=== PATIENT | female | born 1940 | race Caucasian/White ===

== ENCOUNTER 2025-01-26 09:00 | Outpatient (REF) | payer MEDICARE, SELFPAY ==
--- NOTE | ~2025-01-26 | XR_ITS ---
EXAMINATION: XR KNEE 3 VIEWS LEFT HISTORY: M25.562 - Pain in left knee COMPARISON: There are no prior studies available for comparison. FINDINGS: Three views of the left knee are submitted. There is ill-defined increased sclerosis involving the medial aspect of the proximal tibial metaphysis. This could represent a healing stress fracture. There is no dislocation. There is mild narrowing of the medial compartment. There are vascular calcifications. There is no joint effusion. XR/XR knee LT 3V IMPRESSION: 1. Ill-defined sclerosis involving the medial aspect of the proximal tibial metaphysis which could represent a healing stress fracture. If further imaging is desired, MRI could be performed. 2. Mild narrowing of the medial compartment. Electronically signed by: Raulito Alicea MD 01/27/2025 09:43 AM EDT
--- OUTSIDE RECORDS SUMMARY | 2025-01-27 09:13 | XMS_ITS | Clinical Summary ---
Author Organization [facility] Address [address] [place], [place] [id number] Care Team Providers Care Senior Product Analyst Name Role Phone Félix Alarcon MD Primary Care Provider [phone]- [phone] Allergies Active Allergy Reactions Criticality Noted Date [...] age to complete this topic Care Teams Senior Product Analyst Relationship Specialty Start Date End Date Félix Alarcon MD [address] [place] [address] PCP - General Internal Medicine 06/10/17
--- OUTSIDE RECORDS SUMMARY | 2025-01-27 09:13 | XMS_ITS | Clinical Summary ---
Author Organization [address] [place] [address] Address [address] [place] [address] Phone Care Team Providers Care Classification Officer Name Role Phone Mar Lund Primary Care Provider [phone] Allergies Active Allergy Reactions Criticality Noted Date [...] Description 03/24/2025 9:20 AM EDT Office Visit [facility] [address] [phone] Cr Romero MD [address] [address] Health Maintenance Due Date Last Done Comments [...] Procedure Name Priority Date/Time Associated Diagnosis Comments [facility] DEXA AXIAL SKELETON Routine 09/07/2018 11:24 AM EST Asymptomatic menopausal state from Last 3 Months or Most Recently Relevant to Health Maintenance Results * [facility] DEXA AXIAL SKELETON (09/07/2018 11:24 AM EST) Anatomical Region Laterality Modality Mammography 09/07/2018 9:11 AM EST Narrative 09/07/2018 11:24 AM EST [facility] Diagnostic Imaging Department [address] [place] [id number] Patient: ??AIDEE NOLEN ?/Age/Sex: 1940 - 78 - F Unit#: ??[id number] ? Location/Status: ??SPDIMAM/REG CLI ? Mnemonic/Ordering Site: [...] probability of hip fracture of 2.7%. Code 32593 Dictating Physician: ??THA KENT MD Electronically Signed by: ??THA KENT MD Dic Date/Time: ??09/07/18 1123 Sign date/Time: ??09/07/18 1124 Procedure Note Tha Kent MD - 10/15/2022 [facility] Diagnostic Imaging Department [address] [place] [id number] Patient: AIDEE NOLEN Elaine /Age/Sex: 1940 - 78 - F Unit#: [id number] Location/Status: SPDIMAM/REG CLI Mnemonic/Ordering Site: MAMDEXAAX/SPMAM Ordering [...] probability of hip fracture of 2.7%. 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
== END 2025-01-26 09:01 | disposition home or self-care (01) ==
LOC: HO.HOSX 09:00
PROVIDERS: Visit Provider Orthopaedic Surgery
DX: M25.562 Pain in left knee (principal)
CPT/HCPCS: 73562; 99202

== ENCOUNTER 2025-01-26 13:21 | Outpatient (AMB) | payer MEDICARE, SELFPAY ==
--- NOTE | 2025-01-26 13:32 | MHC.OFFVIS ---
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 She describes her pain as sharp in nature. Her pain has gotten worse over the last few years in spite of continued non operative treatments. She has had cortisone injections given into her left knee by another provider in the past. She got minimal relief from those injections. She has also had Euflexxa viscosupplementation injections which gave her good relief. She has failed the last 3 months of conservative treatment which has included a home exercise program, physical therapy exercises, Tylenol, anti-inflammatory medicines and diclofenac topical gel. At this point her left knee pain is interfering with her activities of daily living and her ability to sleep well through the night. The patient wishes to hold off on left total knee replacement surgery for as long as possible. Allergies mold Allergy (Verified 01/26/25 13:38) trouble breathing Penicillins Allergy (Verified 01/26/25 13:38) Swelling Medication List - Last Reconciled 01/27/25 by Robby Vo MD amlodipine 2.5 mg PO DAILY aspirin (Adult Low Dose Aspirin) 81 mg PO DAILY diclofenac sodium 1% topical lisinopril 20 mg PO DAILY omeprazole 20 mg PO DAILY simvastatin 20 mg PO BEDTIME Physical Exam Const Other: Well-nourished well-developed very friendly female awake alert and oriented x3 in no acute distress Extrem Other: Bilateral lower extremity examination shows good capillary refill, no skin lesions noted, normal sensation light touch Left knee examination shows a minimal effusion, palpable crepitus with range of motion, pain with range of motion, no instability Results Reviewed Results Reviewed: X-rays of the patient's left knee show moderate diffuse joint space narrowing, subchondral sclerosis, no acute bony abnormalities Assessment & Plan Assessment & Plan (1) Osteoarthritis of left knee: Code(s): M17.12 - Unilateral primary osteoarthritis, left knee Category: Medical Plan Ms. Nolen presents with progressively worsening left knee pain due to osteoarthritis. I had a lengthy discussion with the patient regarding the treatment options. She wishes to hold off on surgery if at all possible. I agree with this plan. She has not gotten good relief from cortisone injections in the past. Thus, I will see whether or not her insurance company will cover a another series of 3 Euflexxa injections for her left knee. I will see her back once the injections are available. Feel free to call me at any time should questions regarding her orthopedic management arise. I spent 21 minutes in reviewing the patient's records and imaging studies, seeing the patient and documenting in the medical record. Orders: Orders XR knee LT 3V 01/26/25 M25.562 - Pain in left knee Coding Level of Care Code Est Pt Level 3 (28292) Complex EM visit Add On G2211 Diagnoses Osteoarthritis of left knee M17.12
--- OUTSIDE RECORDS SUMMARY | 2025-01-26 15:58 | XMS_ITS | Clinical Summary ---
Author Organization [address] [place] [address] Address [address] [place] [address] Phone Care Team Providers Care Vibrating Screen Operator Name Role Phone Mar Lund Primary Care Provider Allergies Active Allergy Reactions Criticality Noted Date Comments Other 11/29/2022 Dust Mite Penicillins Hives,Rash High 11/29/2022 Medications aspirin ([place]) 81 mg capsule Take by mouth. Active cholecalciferol (VITAMIN D-3) 50 mcg (2,000 unit) capsule Take 1 Capsule by mouth daily. Active lisinopriL (PRINIVIL,ZESTR IL) 20 mg tablet Take 1 Tablet by mouth daily. Active omeprazole 20 mg tablet,disinteg rat, delay rel Take by mouth. Active simvastatin (ZOCOR) 20 mg tablet Take 1 Tablet by mouth at bedtime. Active Active Problems Problem Noted Date Diagnosed Date Hypertension 07/24/2023 Heart murmur 05/28/2023 HLD (hyperlipidemia) 05/28/2023 Aortic valve stenosis 11/29/2022 Surgical History Surgery Date Site/Laterality Comments OTHER SURGICAL HISTORY PROCEDURE: HISTORY OTHER; COMMENT: mammogram OTHER SURGICAL HISTORY PROCEDURE: HISTORY OTHER; COMMENT: cataract surgery OTHER SURGICAL HISTORY PROCEDURE: HISTORY OTHER; COMMENT: hip replacement Medical History Medical History Date Comments CKD (chronic kidney disease) DX: CKD (chronic kidney disease) GERD with esophagitis DX:GERD wi th esophagitis HTN (hypertension) DX:HTN (hyper tension) Osteoarthritis DX:Osteoarthriti s Social History Tobacco Use Types Packs/Day Years Used Date Smoking Tobacco: Never Smokeless Tobacco: Never Alcohol Use Standard Drinks/Week Comments Yes 0 (1 standard drink = 0.6 oz pur e alcohol) Comments Unknown Sex and Gender Information Value Date Recorded Sex Assigned at Female 10/26/2024 3:40 PM EST Legal Sex Female 5:19 AM EST Gender Identity Female 10/26/2024 3:40 PM EST Sexual Orientation Choose not to disclose 2023 3:40 PM EST Obstetrics History Last Filed Vital Signs Vital Sign Reading Time Taken Comments Blood Pressure 156/73 10/26/2024 3:07 PM EST Pulse 69 10/26/2024 3:07 PM EST Temperature 36.1 ??C (97 ??F) 10/26/2024 3:07 PM EST Respiratory Rate 18 10/26/2024 3:07 PM EST Oxygen Saturation 100% 10/26/2024 3:07 PM EST Inhaled Oxygen Concentration - - Weight 65.8 kg (145 lb) 10/26/2024 3:07 PM EST Height 157.5 cm (5' 2 ) 10/26/2024 3:07 PM EST Body Mass Index 26.52 10/26/2024 3:07 PM EST Plan of Treatment Upcoming Encounters Date Type Department Care Team (Late st Contact Info) Description 03/24/2025 9:20 AM EDT Office Visit [facility] [address] [phone] Cr Romero MD [address] [address] Health Maintenance Due Date Last Done Comments DTaP,Tdap,and Td Vaccines (1 - Tdap) 1957 Pneumococcal Vaccine: 50+ Years (1 of 1 - PCV) 1988 Zoster Vaccines (1 of 2) 1988 Cholesterol Screening (Lipid Panel) 09/29/2022 Depression Screening 09/29/2022 Falls Risk Assessment 09/29/2022 Medicare Annual Wellness Visit 09/29/2022 Social Influencers of Health Screening 09/29/2022 Hypertension/CHF/CAD Annual BMP Blood Test 11/28/2023 Osteoporosis Screening (Bone Density Screening) 09/07/2028 09/07/2018 COVID-19 Vaccine Completed 07/14/2024, 09/2023, 04/09/2022, Additional history exists RSV Immunization Adult Patients Completed 08/12/2024 Influenza Vaccine Completed 09/09/2024, , 08/10/2021, Additional history exists HIB Vaccines Aged Out No longer eligi ble based on patient's age to complete this topic HPV Vaccines Aged Out No longer eligi ble based on patient's age to complete this topic Hepatitis A Vaccines Aged Out No long er eligible based on patient's age to complete this topic Hepatitis B Vaccines Aged Out No long er eligible based on patient's age to complete this topic IPV Vaccines Aged Out No longer eligi ble based on patient's age to complete this topic MMR Vaccines Aged Out No longer eligi ble based on patient's age to complete this topic Meningococcal ACWY Vaccine Aged Out N o longer eligible based on patient's age to complete this topic Meningococcal B Vacine Aged Out No lo nger eligible based on patient's age to complete this topic RSV Immunization Patients Under 20 months Aged Out No longer eligible based on patient's age to complete this topic Varicella Vaccines Aged Out No longer eligible based on patient's age to complete this topic Procedures Procedure Name Priority Date/Time Associated Diagnosis Comments [facility] DEXA AXIAL SKELETON Routine 09/07/2018 11:24 AM EST Asymptomatic menopausal state from Last 3 Months or Most Recently Relevant to Health Maintenance Results * [facility] DEXA AXIAL SKELETON (09/07/2018 11:24 AM EST) Anatomical Region Laterality Modality Mammography 09/07/2018 9:11 AM EST Narrative 09/07/2018 11:24 AM EST [facility] Diagnostic Imaging Department [address] [place] [id number] Patient: ??AIDEE NOLEN ?/Age/Sex: 1940 - 78 - F Unit#: ??[id number] ? Location/Status: ??SPDIMAM/REG CLI ? Mnemonic/Ordering Site: ??MAMDEXAAX/SPMAM Ordering Physician: ??LATRICIA ALARCON MD Landon Dexa Axial Skeleton - 09/07/181020 HISTORY: ??The patient is an 78-year-old postmenopausal female with clinical concern for metabolic bone disease. The patient is undergone previous left hip replacement surgery. FINDINGS: ??Dual energy x-ray absorptiometry of the lumbar spine and right femur is performed. The mean bone mineral density at L1-L4 is 1.275 gm/cm2 which is 108% of that of young normals and 126% of that of age matched controls. This yields a T-score of 0.8 and a Z-score of 2.2 and there is therefore no evidence of osteoporosis or osteopenia here. The mean bone mineral density of the right femur is 0.967 gm/cm2 which is 96% of that of young normals and 122% of that of age matched controls. ??This yields a T-score of -0.3 and a Z-score of 1.4 and there is therefore no evidence of osteoporosis or osteopenia here. IMPRESSION: 1. There is no evidence of osteoporosis or osteopenia. 2. FRAX analysis yields a 10-year probability of major osteoporotic fracture of 12.2% and a 10-year probability of hip fracture of 2.7%. Code 21722 Dictating Physician: ??THA KENT MD Electronically Signed by: ??THA KENT MD Dic Date/Time: ??09/07/18 1123 Sign date/Time: ??09/07/18 1124 Procedure Note Tha Kent MD - 10/15/2022 [facility] Diagnostic Imaging Department [address] [place] [id number] Patient: AIDEE NOLEN Elaine /Age/Sex: 1940 - 78 - F Unit#: [id number] Location/Status: SPDIMAM/REG CLI Mnemonic/Ordering Site: MAMDEXAAX/SPMAM Ordering Physician: LATRICIA ALARCON MD [facility] Dexa Axial Skeleton - 09/07/181020 HISTORY: The patient is an 78-year-old postmenopausal female withclinical concern for metabolic bone disease. The patient is undergone previous lefthip replacement surgery. FINDINGS: Dual energy x-ray absorptiometry of the lumbar spine and rightfemur is performed. The mean bone mineral density at L1-L4 is 1.275 gm/cm2 whichis 108% of that of young normals and 126% of that of age matched controls.This yields a T-score of 0.8 and a Z-score of 2.2 and there is therefore noevidence of osteoporosis or osteopenia here. The mean bone mineral density of the right femur is 0.967 gm/cm2 which is96% of that of young normals and 122% of that of age matched controls. Thisyields a T-score of -0.3 and a Z-score of 1.4 and there is therefore no evidenceof osteoporosis or osteopenia here. IMPRESSION: 1. There is no evidence of osteoporosis or osteopenia. 2. FRAX analysis yields a 10-year probability of major osteoporoticfracture of 12.2% and a 10-year probability of hip fracture of 2.7%. Code 99432 Dictating Physician: THA KENT MD Electronically Signed by: THA KENT MD Dic Date/Time: 09/07/18 1123 Sign date/Time: 09/07/18 1124 Latricia Alarcon MD IMG BI PROCEDURES Final Re sult from Last 3 Months or Most Recently Relevant to Health Maintenance Insurance MEDICARE [facility] Advance Directives Documents on File Type Date Recorded Patient Pharmacy Sales Assistant Expl anation Health Care Decision (hx) 04/22/2016 AD SARAVIA DIRECTIVE Health Care Decision (hx) 04/22/2016 AD SARAVIA DIRECTIVE Health Care Decision (hx) 04/22/2016 AD SARAVIA DIRECTIVE Health Care Decision (hx) 04/22/2016 AD SARAVIA DIRECTIVE Health Care Decision (hx) 04/22/2016 AD SARAVIA DIRECTIVE Health Care Decision (hx) 04/22/2016 AD SARAVIA DIRECTIVE Health Care Decision (hx) 04/22/2016 AD SARAVIA DIRECTIVE Health Care Decision (hx) 04/22/2016 AD SARAVIA DIRECTIVE Health Care Decision (hx) 04/22/2016 AD SARAVIA DIRECTIVE Health Care Decision (hx) 04/22/2016 AD SARAVIA DIRECTIVE Health Care Decision (hx) 04/22/2016 AD SARAVIA DIRECTIVE Health Care Decision (hx) 04/22/2016 AD SARAVIA DIRECTIVE Health Care Decision (hx) 04/22/2016 AD SARAVIA DIRECTIVE Health Care Decision (hx) 04/22/2016 AD SARAVIA DIRECTIVE Care Teams Vibrating Screen Operator Relationship Specialty Start Date End Date Mar Lund [place] [address] [place] PCP - General 02/06/23
--- OUTSIDE RECORDS SUMMARY | 2025-01-26 15:58 | XMS_ITS ---
Author Name [facility] Organization Unknown Encounters Encounter Type Encounter Reason Primary Diagnosis Location Date Ambulatory [facility] 07/22/2023 Ambulatory [facility] 07/22/2023
--- OUTSIDE RECORDS SUMMARY | 2025-01-26 15:58 | XMS_ITS | Clinical Summary ---
Author Organization [facility] Address [address] [place], [place] [id number] Care Team Providers Care Rehab Department Manager Name Role Phone Félix Alarcon MD Primary Care Provider [phone] Allergies Active Allergy Reactions Criticality Noted Date Comments Penicillins 12/24/2017 Medications Medication Sig Dispensed Refills Start Date End Date Status omeprazole (PRILOSEC) 20 MG capsule TAKE 1 CAPSULE BY MOUTH ONCE DAILY 1 11/22/2017 Active simvastatin (ZOCOR) tablet 10 mg TAKE 1 TABLET BY MOUTH EVERY DAY 5 10/23/2017 Active FLUZONE HIGH-DOSE 0.5 ML MARIO TO BE ADMINISTERED BY PHARMACIST FOR IMMUNIZATION 0 11/12/2017 Active lisinopril (PRINIVIL,ZESTRIL) tablet 20 mg Take 20 mg by mouth daily. 0 09/23/2020 Active clindamycin (CLEOCIN) 300 MG capsule Take 2 capsules 1 hour prior to dental appointment 10 capsule 2 12/07/2020 Active Family History Medical History Relation Name Comments Heart disease Mother Hypertension Mother Relation Name Status Comments Mother Social History Tobacco Use Types Packs/Day Years Used Date Smoking Tobacco: Never Smokeless Tobacco: Never Alcohol Use Standard Drinks/Week Comments Yes 0 (1 standard drink = 0.6 oz pur e alcohol) social Sex and Gender Information Value Date Recorded Sex Assigned at Not on file Gender Identity Not on file Sexual Orientation Not on file Job Start Date Occupation Industry Not on file Not on file Not on file Last Filed Vital Signs Vital Sign Reading Time Taken Comments Blood Pressure - - Pulse - - Temperature - - Respiratory Rate - - Oxygen Saturation - - Inhaled Oxygen Concentration - - Weight 69.9 kg (154 lb) 01/09/2021 8:58 AM EDT Height 157.5 cm (5' 2 ) 01/09/2021 8:58 AM EDT Body Mass Index 28.17 01/09/2021 8:58 AM EDT Plan of Treatment Health Maintenance Due Date Last Done Comments COVID-19 Vaccine (#1) 1940 Depression Screening 1950 Preventative Health Evaluation 1956 DTap / Tdap / Td (1 - Tdap) 1957 Shingrix-Zoster Vaccine (1 of 2) 1988 Fall Risk Assessment 2003 Osteoporosis Screening (DEXA Scan) 2003 Pneumococcal Vaccine (1 of 1 - PCV) 2003 RSV Adult > 60+ Yrs or Pregn ant (1 - 1-dose 75+ series) 2013 Influenza Vaccine (#1) 2024 Hepatitis B Vaccines Aged Out No long er eligible based on patient's age to complete this topic RSV Ped < 20 months Aged Out No longe r eligible based on patient's age to complete this topic Care Teams Rehab Department Manager Relationship Specialty Start Date End Date Félix Alarcon MD [address] [place] [address] PCP - General Internal Medicine 06/10/17
== END 2025-01-26 13:49 | disposition home or self-care (01) ==
LOC: HO.HOS 13:21
PROVIDERS: PCP Physician Assistant Medical; Visit Provider Orthopaedic Surgery
DX: M17.12 Unilateral primary osteoarthritis, left knee (principal)
CPT/HCPCS: 99203; G2211

== ENCOUNTER → 2025-01-26 13:26 | Outpatient (BNV) | payer MEDICARE, SELFPAY | PROVIDERS: Visit Provider Radiology Diagnostic Radiology | DX: M89.8X6 Other specified disorders of bone, lower leg (principal) | CPT/HCPCS: 73562 ==

== ENCOUNTER 2025-03-08 09:51 | Outpatient (AMB) | payer MEDICARE, SELFPAY ==
--- NOTE | 2025-03-08 09:56 | MHC.OFFVIS ---
Vital Signs 03/08/25 09:57 Height 5 ft 2 in Weight 148 lb BMI 27.1 Intake Visit Reasons: Inj- Left knee Euflexxa #1 Intake Note: Aidee is an 84 year old female who presents with complaints of progressively worsening left knee pain. She describes her pain as sharp in nature. She has tried cortisone injections which gave her minimal relief. She has also done physical therapy exercises which aggravated her pain. She wishes to hold off on surgery for as long as possible. She has failed the last 3 months of conservative treatment. Allergies mold Allergy (Verified 03/08/25 09:56) trouble breathing Penicillins Allergy (Verified 03/08/25 09:56) Swelling Physical Exam Vital Signs: BMI result Body Mass Index 27.1 Const Other: Well-nourished well-developed very friendly female awake alert and oriented x3 in no acute distress Extrem Other: Bilateral lower extremity examination shows good capillary refill, no skin lesions noted, normal sensation light touch Left knee examination shows a minimal effusion, palpable crepitus with range of motion, pain with range of motion, no instability Office Procedures AMB Joint Injection/Aspiration Joint Injection/Aspiration Primary Site: left knee Prep: site was prepped using aseptic technique Injected: 20 mg of (Euflexxa viscosupplementation) and 1% plain lidocaine Procedure: The patient tolerated the procedure well Coding 70885 - Large joint Procedure code (CPT) selection complete Results Reviewed Results Reviewed: X-rays of the patient's left knee taken previously show joint space narrowing, subchondral sclerosis, no acute bony abnormalities Assessment & Plan Assessment & Plan (1) Osteoarthritis of left knee: Code(s): M17.12 - Unilateral primary osteoarthritis, left knee Category: Medical Plan Ms. Nolen presents with left knee pain due to osteoarthritis. The risks and benefits of a series of Euflexxa injections were discussed at length with the patient. The patient wished to proceed. She tolerated the 1st injection well. She will continue with her home exercise program. She will follow up next week as scheduled. I spent 20 minutes in reviewing the patient's records and imaging studies, seeing the patient and documenting in the medical record. Orders: Orders AMB Joint Injection/Aspiration Today M17.12 - Unilateral primary osteoarthritis, left knee Coding Level of Care Code Est Pt Level 3 (35640) Complex EM visit Add On G2211 Diagnoses Osteoarthritis of left knee M17.12 CPT Codes Coding - 84552 Large joint: 74852 - Large joint ([id number])
[2025-03-08 09:57] VITALS: BMI 27.1
--- OUTSIDE RECORDS SUMMARY | 2025-03-08 10:40 | XMS_ITS | Clinical Summary ---
Author Organization [address] [place] [address] Address [address] [place] [address] Phone Care Team Providers Care Station Mechanic Helper Name Role Phone Mar Lund Primary Care Provider [phone] Allergies Active Allergy Reactions Criticality Noted Date [...] Description 03/24/2025 9:20 AM EDT Office Visit [facility] [address] [phone] Cr Romero MD [address] [address] Health Maintenance Due Date Last Done Comments DTaP,Tdap,and Td Vaccines (1 - Tdap) 1957 Pneumococcal Vaccine: 50+ Years (1 of 1 - PCV) 1988 Zoster Vaccines (1 of 2) 1988 Cholesterol Screening (Lipid Panel) 09/29/2022 Depression Screening 09/29/2022 Falls Risk Assessment 09/29/2022 Medicare Annual Wellness Visit 09/29/2022 Social Influencers of Health Screening 09/29/2022 Hypertension/CHF/CAD Annual BMP Blood Test 11/28/2023 COVID-19 Vaccine (7 - Pfizer risk season) 2025 07/14/2024, 11/07/2022, 04/09/2022, Additional history exists Osteoporosis Screening (Bone Density Screening) 09/07/2028 09/07/2018 RSV Immunization Adult Patients Completed 08/12/2024 Influenza [...] age to complete this topic Meningococcal B Vaccine Aged Out No l onger eligible based on patient's age to complete this topic RSV Immunization Patients Under 20 months Aged Out No longer eligible based on patient's age to complete this topic Varicella Vaccines Aged Out No longer eligible based on patient's age to complete this topic Procedures Procedure Name Priority Date/Time Associated Diagnosis Comments [facility] DEXA AXIAL SKELETON Routine 09/07/2018 11:24 AM EST Asymptomatic menopausal state from Last 3 Months or Most Recently Relevant to Health Maintenance Results * [facility] DEXA AXIAL SKELETON (09/07/2018 11:24 AM EST) Anatomical Region Laterality Modality Mammography 09/07/2018 9:11 AM EST Narrative 09/07/2018 11:24 AM EST [facility] Diagnostic Imaging Department [address] [place] [id number] Patient: ??AIDEE NOLEN ?/Age/Sex: 1940 - 78 - F Unit#: ??[id number] ? Location/Status: ??SPDIMAM/REG CLI ? Mnemonic/Ordering Site: [...] probability of hip fracture of 2.7%. Code 17864 Dictating Physician: ??THA KENT MD Electronically Signed by: ??THA KENT MD Dic Date/Time: ??09/07/18 1123 Sign date/Time: ??09/07/18 1124 Procedure Note Tha Kent MD - 10/15/2022 [facility] Diagnostic Imaging Department [address] [place] [address] Patient: AIDEE NOLEN Elaine /Age/Sex: 1940 - 78 - F Unit#: [id number] Location/Status: SPDIMAM/REG CLI [facility] Ordering Physician: LATRICIA ALARCON MD Landon Dexa Axial Skeleton - 09/07/18 - 1021 HISTORY: The patient is an 78-year-old postmenopausal [...] probability of hip fracture of 2.7%. 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
--- OUTSIDE RECORDS SUMMARY | 2025-03-08 10:40 | XMS_ITS | Clinical Summary ---
Author Organization [facility] Address [address] [place], [place] [id number] Care Team Providers Care Zipper Lining Folder Name Role Phone Félix Alarcon MD Primary Care Provider [phone] Allergies Active Allergy Reactions Criticality Noted Date [...] age to complete this topic Care Teams Zipper Lining Folder Relationship Specialty Start Date End Date Félix Alarcon MD [address] [place] [address] PCP - General Internal Medicine 06/10/17
== END 2025-03-08 10:16 | disposition home or self-care (01) ==
LOC: HO.HOS 09:52
PROVIDERS: Visit Provider Orthopaedic Surgery
DX: M17.12 Unilateral primary osteoarthritis, left knee (principal)
CPT/HCPCS: 20610; 99213

== ENCOUNTER → 2025-03-08 09:51 | Outpatient (BNVA) | payer MEDICARE, SELFPAY | PROVIDERS: Visit Provider Orthopaedic Surgery | DX: M17.12 Unilateral primary osteoarthritis, left knee (principal) | CPT/HCPCS: 20610; 99212; J2003; J7323 ==

== ENCOUNTER 2025-03-16 10:14 | Outpatient (AMB) | payer MEDICARE, SELFPAY ==
[2025-03-16 10:22] VITALS: BMI 27.1
--- NOTE | 2025-03-16 10:22 | MHC.OFFVIS ---
Vital Signs 03/16/25 10:22 Height 5 ft 2 in Weight 148 lb BMI 27.1 Intake Visit Reasons: Inj- Left knee Euflexxa #2 Intake Note: Aidee is an 84 year old female who presents today for their second dose of left knee Euflexxa injections. She states that she has gotten mild relief from the 1st injection. She continues with her home exercise program. Allergies mold Allergy (Verified 03/16/25 10:23) trouble breathing Penicillins Allergy (Verified 03/16/25 10:23) Swelling Medication List - Last Reconciled 03/16/25 by Robby Vo MD amlodipine 2.5 mg PO DAILY aspirin (Adult Low Dose Aspirin) 81 mg PO DAILY diclofenac sodium 1% topical lisinopril 20 mg PO DAILY omeprazole 20 mg PO DAILY simvastatin 20 mg PO BEDTIME Physical Exam Vital Signs: BMI result Body Mass Index 27.1 Extrem Other: Left knee examination shows a minimal effusion, palpable crepitus with range of motion, pain with range of motion, no instability Office Procedures AMB Joint Injection/Aspiration Joint Injection/Aspiration Primary Site: left knee Prep: site was prepped using aseptic technique Injected: 20 mg of (Euflexxa viscosupplementation) and 1% plain lidocaine Procedure: The patient tolerated the procedure well Coding - Large joint Procedure code (CPT) selection complete Results Reviewed Results Reviewed: X-rays of the patient's left knee taken previously show joint space narrowing, subchondral sclerosis, no acute bony abnormalities Assessment & Plan Assessment & Plan (1) Osteoarthritis of left knee: Code(s): M17.12 - Unilateral primary osteoarthritis, left knee Category: Medical Plan Ms. Nolen presents with left knee pain due to osteoarthritis. The risks and benefits of a 2nd Euflexxa injection were discussed at length with the patient. The patient wished to proceed. She tolerated the injection well. She will continue with her home exercise program. She will follow up next week as scheduled. Orders: Orders AMB Joint Injection/Aspiration Today M17.12 - Unilateral primary osteoarthritis, left knee Coding Level of Care Code Procedure Only Diagnoses Osteoarthritis of left knee M17.12 CPT Codes Coding - 18436 Large joint: 58926 - Large joint ([id number])
--- OUTSIDE RECORDS SUMMARY | 2025-03-16 11:47 | XMS_ITS | Clinical Summary ---
Author Organization [facility] Address [address] [place], [place] [id number] Care Team Providers Care Gear Tooth Grinding Machine Operator Name Role Phone Félix Alarcon MD Primary Care Provider [phone] Allergies Active Allergy Reactions Criticality Noted Date [...] age to complete this topic Care Teams Gear Tooth Grinding Machine Operator Relationship Specialty Start Date End Date Félix Alarcon MD [address] [place] [address] PCP - General Internal Medicine 06/10/17
--- OUTSIDE RECORDS SUMMARY | 2025-03-16 11:47 | XMS_ITS | Clinical Summary ---
Author Organization [address] [place] [address] Address [address] [place] [address] Phone Care Team Providers Care Blood Bank Order Control Clerk Name Role Phone Mar Lund Primary Care Provider [phone] Allergies Active Allergy Reactions Criticality Noted Date [...] Description 03/24/2025 9:20 AM EDT Office Visit [facility] [address] [phone] Cr Romero MD [address] [address] Health Maintenance Due Date Last Done Comments [...] Procedure Name Priority Date/Time Associated Diagnosis Comments [facility] DEXA AXIAL SKELETON Routine 09/07/2018 11:24 AM EST Asymptomatic menopausal state from Last 3 Months or Most Recently Relevant to Health Maintenance Results * [facility] DEXA AXIAL SKELETON (09/07/2018 11:24 AM EST) Anatomical Region Laterality Modality Mammography 09/07/2018 9:11 AM EST Narrative 09/07/2018 11:[address] [facility] Diagnostic Imaging Department [address] [place] [id number] Patient: ??AIDEE NOLEN ?/Age/Sex: 1940 - 78 - F Unit#: ??[id number] ? Location/Status: ??SPDIMAM/REG CLI ? Mnemonic/Ordering Site: [...] probability of hip fracture of 2.7%. Code 73027 Dictating Physician: ??THA KENT MD Electronically Signed by: ??THA KENT MD Dic Date/Time: ??09/07/18 1123 Sign date/Time: ??09/07/18 1124 Procedure Note Tha Kent MD - 10/15/2022 [facility] Diagnostic Imaging Department [address] [place] [address] Patient: AIDEE NOLEN Elaine /Age/Sex: 1940 - 78 - F Unit#: [id number] Location/Status: SPDIMAM/REG CLI [facility] Ordering Physician: LATRICIA ALARCON MD Landon Dexa [...] probability of hip fracture of 2.7%. Code 48863 Dictating Physician: THA KENT MD Electronically Signed by: THA KENT MD Dic Date/Time: 09/07/18 1123 Sign date/Time: 09/07/18 1124 Latricia Alarcon MD IMG BI PROCEDURES Final Re sult from Last 3 Months or Most Recently Relevant to Health Maintenance Insurance MEDICARE [facility] Advance Directives Documents on File Type Date Recorded Patient Dye Expert Expl anation Health Care Decision (hx) 04/22/2016 [...] (hx) 04/22/2016 AD SARAVIA DIRECTIVE Care Teams Blood Bank Order Control Clerk Relationship Specialty Start Date End Date Mar Lund PA PCP - General 02/06/23
== END 2025-03-16 10:57 | disposition home or self-care (01) ==
LOC: HO.HOS 10:15
PROVIDERS: Visit Provider Orthopaedic Surgery
DX: M17.12 Unilateral primary osteoarthritis, left knee (principal)
CPT/HCPCS: 20610

== ENCOUNTER → 2025-03-16 10:14 | Outpatient (BNVA) | payer MEDICARE, SELFPAY | PROVIDERS: Visit Provider Orthopaedic Surgery | DX: M17.12 Unilateral primary osteoarthritis, left knee (principal) | CPT/HCPCS: 20610; J2003; J7323 ==

== ENCOUNTER 2025-03-23 10:19 | Outpatient (AMB) | payer MEDICARE, SELFPAY ==
--- NOTE | 2025-03-23 10:26 | MHC.OFFVIS ---
Vital Signs 03/23/25 10:28 Height 5 ft 2 in Weight 148 lb BMI 27.1 Intake Visit Reasons: Inj- Left knee Euflexxa #3 Intake Note: Aidee is an 84 year old female who presents today for their third dose of left knee Euflexxa injections. She states that she has gotten mild relief from the 1st 2 injections. She continues with her home exercise program. Allergies mold Allergy (Verified 03/16/25 10:23) trouble breathing Penicillins Allergy (Verified 03/16/25 10:23) Swelling Medication List - Last Reconciled 03/23/25 by Robby Vo MD amlodipine 2.5 mg PO DAILY aspirin (Adult Low Dose Aspirin) 81 mg PO DAILY diclofenac sodium 1% topical lisinopril 20 mg PO DAILY omeprazole 20 mg PO DAILY simvastatin 20 mg PO BEDTIME Physical Exam Vital Signs: BMI result Body Mass Index 27.1 Const Other: Well-nourished well-developed very friendly female awake alert and oriented x3 in no acute distress Extrem Other: Left knee examination shows a minimal effusion, palpable crepitus with range of motion, pain with range of motion, no instability Office Procedures AMB Joint Injection/Aspiration Joint Injection/Aspiration Primary Site: left knee Prep: site was prepped using aseptic technique Injected: 20 mg of (Euflexxa viscosupplementation) and 1% plain lidocaine Procedure: The patient tolerated the procedure well Coding 12698 - Large joint Procedure code (CPT) selection complete Assessment & Plan Assessment & Plan (1) Osteoarthritis of left knee: Code(s): M17.12 - Unilateral primary osteoarthritis, left knee Category: Medical Plan Ms. Nolen presents with left knee pain due to osteoarthritis. The risks and benefits of a 3rd Euflexxa injection were discussed at length with the patient. The patient wished to proceed. She tolerated the injection well. She will continue with her home exercise program. She will contact me prior to her follow-up appointment in 3 months should any questions or concerns arise. Feel free to call me at any time should questions regarding her orthopedic management arise. Orders: Orders AMB Joint Injection/Aspiration Today M17.12 - Unilateral primary osteoarthritis, left knee Coding Level of Care Code Procedure Only Diagnoses Osteoarthritis of left knee M17.12 CPT Codes Coding - 11711 Large joint: 62393 - Large joint ([id number])
[2025-03-23 10:28] VITALS: BMI 27.1
--- OUTSIDE RECORDS SUMMARY | 2025-03-23 11:17 | XMS_ITS | Clinical Summary ---
Author Organization [address] [place] [address] Address [address] [place] [address] Phone Care Team Providers Care Technical Assistance Consultant Name Role Phone Mar Lund Primary Care Provider [phone] Allergies Active Allergy Reactions Criticality Noted Date [...] Description 03/24/2025 9:20 AM EDT Office Visit [facility] [address] [phone] Cr Romero MD [address] [address] Health Maintenance Due Date Last Done Comments [...] Procedure Name Priority Date/Time Associated Diagnosis Comments [facility] DEXA AXIAL SKELETON Routine 09/07/2018 11:24 AM EST Asymptomatic menopausal state from Last 3 Months or Most Recently Relevant to Health Maintenance Results * [facility] DEXA AXIAL SKELETON (09/07/2018 11:24 AM EST) Anatomical Region Laterality Modality Mammography 09/07/2018 9:11 AM EST Narrative 09/07/2018 11:24 AM EST [facility] Diagnostic Imaging Department [address] [place] [id number] Patient: ??AIDEE NOLEN ?/Age/Sex: 1940 - 78 - F Unit#: ??[id number] ? Location/Status: ??SPDIMAM/REG CLI ? Mnemonic/Ordering Site: [...] probability of hip fracture of 2.7%. Code 43591 Dictating Physician: ??THA KENT MD Electronically Signed by: ??THA KENT MD Dic Date/Time: ??09/07/18 1123 Sign date/Time: ??09/07/18 1124 Procedure Note Tha Kent MD - 10/15/2022 [facility] Diagnostic Imaging Department [address] [place] [address] Patient: AIDEE NOLEN Elaine /Age/Sex: 1940 - 78 - F Unit#: [id number] Location/Status: SPDIMAM/REG CLI [facility] Ordering Physician: LATRICIA ALARCON MD Landon Dexa [...] probability of hip fracture of 2.7%. 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
== END 2025-03-23 10:43 | disposition home or self-care (01) ==
LOC: HO.HOS 10:20
PROVIDERS: Visit Provider Orthopaedic Surgery
DX: M17.12 Unilateral primary osteoarthritis, left knee (principal)
CPT/HCPCS: 20610

== ENCOUNTER → 2025-03-23 10:19 | Outpatient (BNVA) | payer MEDICARE, SELFPAY | PROVIDERS: Visit Provider Orthopaedic Surgery | DX: M17.12 Unilateral primary osteoarthritis, left knee (principal) | CPT/HCPCS: 20610; J2003; J7323 ==

== ENCOUNTER 2025-06-20 09:19 | Outpatient (AMB) | payer MEDICARE, SELFPAY ==
--- OUTSIDE RECORDS SUMMARY | 2025-06-20 10:03 | XMS_ITS ---
Author Name [facility] Organization Unknown Encounters Encounter Type Encounter Reason Primary Diagnosis Location Date Ambulatory [facility] 07/22/2023 Ambulatory [facility] 07/22/2023
--- OUTSIDE RECORDS SUMMARY | 2025-06-20 10:03 | XMS_ITS | Clinical Summary ---
Author Organization [address] [place] [address] [place] [address] Phone Care Team Providers Care Certified Registered Nurse Practitioner Name Role Phone Mar Lund Primary Care Provider [phone] Allergies Active Allergy Reactions Criticality Noted Date [...] 1 Tablet by mouth at bedtime. Active amLODIPine (NORVASC) 2.5 mg tablet Take by mouth 1 (one) time each day. Active clindamycin (CLEOCIN) 300 mg capsule Take 2 capsules by mouth 30-60 minutes prior to dental appt. 2 capsule 2 5 Active clindamycin (CLEOCIN) 300 mg capsule TAKE 2 CAPSULES BY MOUTH 30-60 MINUTES PRIOR TO DENTAL APPT 06/03/20 25 Discontinu ed(Reorder ) Active Problems Problem Noted Date Diagnosed Date History of transcatheter aortic valve replacemen t (TAVR) 03/24/2025 Hypertension 07/24/2023 Heart murmur 05/28/2023 HLD (hyperlipidemia) 05/28/2023 Aortic valve stenosis 11/29/2022 Encounters Date Type Department Care Team Description 03/24/2025 9:20 AM EDT Office Visit [facility] - [address] [place] [address] Cr Romero MD Nonrheumatic aortic valve stenosis (Primary Dx); History of transcatheter aortic valve replacement (TAVR); Mixed hyperlipidemia; Primary hypertension from Last 3 Months Surgical History Surgery Date Site/Laterality Comments OTHER [...] Sign Reading Time Taken Comments Blood Pressure 118/60 03/24/2025 9:09 AM EDT Pulse 80 03/24/2025 9:09 AM EDT Temperature 36.1 C (97 F) 10/26/2024 3:07 PM EST Respiratory Rate 18 10/26/2024 3:07 PM EST Oxygen Saturation 96% 03/24/2025 9:09 AM EDT Inhaled Oxygen Concentration - - Weight 64 kg (141 lb) 03/24/2025 9:09 AM EDT Height 154.9 cm (5' 1 ) 03/24/2025 9:09 AM EDT Body Mass Index 26.64 03/24/2025 9:09 AM EDT Plan of Treatment Health Maintenance Due Date Last Done Comments DTaP,Tdap,and Td Vaccines (1 - Tdap) 1957 Zoster Vaccines (1 of 2) 1957 Pneumococcal Vaccine: 50+ Years (1 of 1 - PCV) 1988 Cholesterol Screening (Lipid Panel) 09/29/2022 Falls Risk Assessment 09/29/2022 Medicare Annual Wellness Visit 09/29/2022 Social Influencers of Health Screening 09/29/2022 Hypertension/CHF/CAD Annual BMP Blood Test 11/28/2023 Depression Screening 10/27/2024 COVID-19 Vaccine (7 - Pfizer risk season) 2025 07/14/2024, 11/07/2022, 04/09/2022, Additional history exists Influenza Vaccine (#1) 2025 , 09/10/2023, 08/10/2021, Additional history exists Osteoporosis Screening (Bone Density Screening) 09/07/2028 09/07/2018 RSV Immunization Adult Patients Completed 08/12/2024 HIB Vaccines Aged Out No longer eligi [...] Procedure Name Priority Date/Time Associated Diagnosis Comments [facility] DEXA AXIAL SKELETON Routine 09/07/2018 11:24 AM EST Asymptomatic menopausal state from Last 3 Months or Most Recently Relevant to Health Maintenance Results * [facility] DEXA AXIAL SKELETON (09/07/2018 11:24 AM EST) Anatomical Region Laterality Modality Mammography 09/07/2018 9:11 AM EST Narrative 09/07/2018 11:24 AM [facility] Diagnostic Imaging Department [address] [place] [id number] Patient: AIDEE NOLEN Elaine CarsonB./Age/Sex: 1940 - 78 - F Unit#: [id number] Location/Status: SPDIMAM/REG CLI [facility] Ordering Physician: LATRICIA ALARCON MD Landon Dexa Axial Skeleton - 09/07/18 - 1021 HISTORY: The patient is an 78-year-old postmenopausal female with clinical concern for metabolic bone disease. The patient is undergone previous left hip replacement surgery. FINDINGS: Dual energy x-ray absorptiometry [...] 122% of that of age matched controls. This yields a T-score of -0.3 and a Z-score of 1.4 and there is therefore no evidence of osteoporosis or osteopenia here. IMPRESSION: 1. There is no evidence of osteoporosis or osteopenia. 2. FRAX analysis yields a 10-year probability of major osteoporotic fracture of 12.2% and a 10-year probability of hip fracture of 2.7%. Code 52663 Dictating Physician: THA KENT MD Electronically Signed by: THA KENT MD Dic Date/Time: 09/07/18 1123 Sign date/Time: 09/07/18 1124 Procedure Note Tha Kent MD - 10/15/2022 [facility] Diagnostic Imaging Department [address] [place], [place] [id number] Patient: AIDEE NOLEN Elaine Riddle./Age/Sex: 1940 - 78 - F Unit#: [id number] [facility]: [facility] Ordering Physician: LATRICIA ALARCON MD Landon [...] probability of hip fracture of 2.7%. Code 27448 Dictating Physician: THA KENT MD Electronically Signed by: THA KENT MD Dic Date/Time: 09/07/18 1123 Sign date/Time: 09/07/18 1124 Latricia Alarcon MD IMG BI PROCEDURES Final Re sult from Last 3 Months or Most Recently Relevant to Health Maintenance Insurance MEDICARE [facility] Advance Directives Documents on File Type Date Recorded Patient Instructor Private Expl anation Health Care Decision (hx) 04/22/2016 [...] (hx) 04/22/2016 AD SARAVIA DIRECTIVE Care Teams Certified Registered Nurse Practitioner Relationship Specialty Start Date End Date Mar Lund PA PCP - General 02/06/23
--- OUTSIDE RECORDS SUMMARY | 2025-06-20 10:03 | XMS_ITS | Clinical Summary ---
Author Organization [facility] Address [address] [place], [place] [id number] Care Team Providers Care Marine Machinist Name Role Phone Félix Alarcon MD Primary Care Provider [phone] Allergies Active Allergy Reactions Criticality Noted Date [...] 1-dose 75+ series) 2013 Influenza Vaccine (#1) 2025 Hepatitis B Vaccines Aged Out No long er eligible based on patient's age to complete this topic RSV Ped < 20 months Aged Out No longe r eligible based on patient's age to complete this topic Care Teams Marine Machinist Relationship Specialty Start Date End Date Félix Alarcon MD [address] [place] [address] PCP - General Internal Medicine 06/10/17
== END 2025-06-20 14:28 | disposition home or self-care (01) ==
LOC: HO.HMGAL 09:19
PROVIDERS: Visit Provider Registered Nurse Emergency
DX: J30.89 Other allergic rhinitis (principal)
CPT/HCPCS: 95117; 95165

== ENCOUNTER 2025-06-23 09:39 | Outpatient (REF) | payer MEDICARE, SELFPAY ==
--- NOTE | ~2025-06-23 | XR_ITS ---
EXAMINATION: XR KNEE, RIGHT CLINICAL INFORMATION: M25.561 - Pain in right knee COMPARISON: None available. TECHNIQUE: Three views of the right knee. FINDINGS: Severe atherosclerotic calcifications are present. There is moderate narrowing of the lateral joint space and questionable narrowing of the medial joint space. There is minimal narrowing of the lateral patellofemoral joint space. There is small amount of joint fluid in suprapatellar pouch. Stippled amorphous calcific density projects in the medial and lateral meniscus. There is mild valgus deformity. There are small tricompartmental marginal osteophytes. 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 Severe atherosclerotic calcifications. Electronically signed by: Brant Meyers MD 06/23/2025 10:22 AM EDT
--- OUTSIDE RECORDS SUMMARY | 2025-06-23 10:46 | XMS_ITS | Clinical Summary ---
Author Organization [facility] Address [address] [place], [place] [id number] Care Team Providers Care Sales Support Consultant Name Role Phone Félix Alarcon MD Primary Care Provider [phone] Allergies Active Allergy Reactions Criticality Noted Date [...] age to complete this topic Care Teams Sales Support Consultant Relationship Specialty Start Date End Date Félix Alarcon MD [address] [place] [address] PCP - General Internal Medicine 06/10/17
--- OUTSIDE RECORDS SUMMARY | 2025-06-23 10:46 | XMS_ITS | Clinical Summary ---
Author Organization [address] [place] [address] [place] [phone] Phone Care Team Providers Care Artist Color Separation Name Role Phone Mar Lund Primary Care Provider [phone] Allergies Active Allergy Reactions Criticality Noted Date [...] Description 03/24/2025 9:20 AM EDT Office Visit [facility] [address] [place] [address] Cr Romero MD Nonrheumatic aortic [...] Procedure Name Priority Date/Time Associated Diagnosis Comments [facility] DEXA AXIAL SKELETON Routine 09/07/2018 11:24 AM EST Asymptomatic menopausal state from Last 3 Months or Most Recently Relevant to Health Maintenance Results * [facility] DEXA AXIAL SKELETON (09/07/2018 11:24 AM EST) Anatomical Region Laterality Modality Mammography 09/07/2018 9:11 AM EST Narrative 09/07/2018 11:24 AM [facility] Diagnostic Imaging Department [address] [place] [id number] Patient: AIDEE NOLEN Elaine CarsonB./Age/Sex: 1940 - 78 - F Unit#: [id number] Location/Status: SPDIMAM/REG CLI Mnemonic[facility] Ordering Physician: LATRICIA ALARCON MD Landon [...] probability of hip fracture of 2.7%. Code 19682 Dictating Physician: THA KENT MD Electronically Signed by: THA KENT MD Dic Date/Time: 09/07/18 1123 Sign date/Time: 09/07/18 1124 Procedure Note Tha Kent MD - 10/15/2022 [facility] Diagnostic Imaging Department [address] [place], [place] [id number] Patient: AIDEE NOLEN Elaine Riddle./Age/Sex: 1940 - 78 - F Unit#: [id number] [facility] Ordering Physician: LATRICIA ALARCON MD Landon [...] probability of hip fracture of 2.7%. 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
== END 2025-06-23 09:40 | disposition home or self-care (01) ==
LOC: HO.HOSX 09:39
PROVIDERS: Visit Provider Orthopaedic Surgery
DX: M17.0 Bilateral primary osteoarthritis of knee (principal)
CPT/HCPCS: 73562; 99212

== ENCOUNTER 2025-06-23 09:40 | Outpatient (AMB) | payer MEDICARE, SELFPAY ==
--- NOTE | 2025-06-23 09:45 | A.OFFVIS_ITS ---
Vital Signs 06/23/25 09:51 Height 5 ft 2 in Weight 148 lb BMI 27.1 Intake Visit Reasons: Bilateral knee pains Intake Note: Aidee is a 85 year old female who presents with complaints of progressively worsening bilateral knee pains. She describes her pains as sharp in nature. She has failed the last 3 months of conservative treatments which have included Tylenol, anti-inflammatory medicines, a home exercise program and physical therapy exercises. She has had cortisone injections in the past which gave her minimal relief. She has also had Euflexxa injections given into her left knee which gave her good relief. She wishes to hold off on total knee replacement surgery if at all possible. Allergies mold Allergy (Verified 06/23/25 09:51) trouble breathing Penicillins Allergy (Verified 06/23/25 09:51) Swelling Medication List - Last Reconciled 06/23/25 by Robby Vo MD amlodipine 2.5 mg PO DAILY aspirin (Adult Low Dose Aspirin) 81 mg PO DAILY clindamycin HCl 600 mg PO lisinopril 20 mg PO DAILY omeprazole 20 mg PO DAILY simvastatin 20 mg PO BEDTIME [facility] Social History (Updated 06/23/25 @ 09:52 by LUL Marino) Alcohol intake: current Alcohol intake frequency: holidays/special occasions only Alcohol type: wine Patient Tobacco Use Status: Never used Tobacco Current occupational status: retired Physical Exam Vital Signs: BMI result Body Mass Index 27.1 Const Other: Well-nourished well-developed very friendly female awake alert and oriented x3 in no acute distress Extrem Other: Bilateral knee examination shows minimal effusions, palpable crepitus with range of motion, pain with range of motion, no instability Results Reviewed Results Reviewed: X-rays of the patient's bilateral knee show joint space narrowing, subchondral sclerosis, no acute bony abnormalities Assessment & Plan Assessment & Plan (1) Osteoarthritis of right knee: Code(s): M17.11 - Unilateral primary osteoarthritis, right knee Category: Medical (2) Osteoarthritis of left knee: Code(s): M17.12 - Unilateral primary osteoarthritis, left knee Category: Medical Plan Mrs. Nolen presents with bilateral knee pains due to osteoarthritis. I had a lengthy discussion with the patient regarding the treatment options. She wishes to hold off on surgery if at all possible. I agree with this plan. I will see if her insurance company will cover a series of 3 Euflexxa injections for both of her knees. I will see her back once the injections are available. Feel free to call me at any time should questions regarding her orthopedic management arise. I spent 22 minutes in reviewing the patient's records and imaging studies, seeing the patient and documenting in the medical record. Orders: Orders XR knee RT 3V Today M25.561 - Pain in right knee Medications: New clindamycin HCl Take two tabs (600 mg) one hour before any dental work. 600 mg (2 x 300 mg) PO ONCE 12 caps 3RF Coding Level of Care Code Est Pt Level 3 (36135) Complex EM visit Add On G2211 Diagnoses Osteoarthritis of right knee M17.11 Osteoarthritis of left knee M17.12
[2025-06-23 09:51] VITALS: BMI 27.1
== END 2025-06-23 10:05 | disposition home or self-care (01) ==
LOC: HO.HOS 09:41
PROVIDERS: Visit Provider Orthopaedic Surgery
DX: M17.0 Bilateral primary osteoarthritis of knee (principal)
CPT/HCPCS: 99213; G2211

== ENCOUNTER → 2025-06-23 09:42 | Outpatient (BNV) | payer MEDICARE, SELFPAY | PROVIDERS: Visit Provider Radiology Diagnostic Radiology | DX: M25.561 Pain in right knee (principal); M17.11 Unilateral primary osteoarthritis, right knee; I70.211 Atherosclerosis of native arteries of extremities with intermittent claudication, right leg | CPT/HCPCS: 73562 ==

== ENCOUNTER 2025-07-18 13:25 | Outpatient (AMB) | payer MEDICARE, SELFPAY | END 2025-07-18 13:26 | disposition home or self-care (01) | LOC: HO.HMGAL 13:25 | PROVIDERS: PCP Physician Assistant Medical; Visit Provider Registered Nurse Emergency | DX: J30.89 Other allergic rhinitis (principal) | CPT/HCPCS: 95117; 95165 ==

== ENCOUNTER 2025-08-22 09:25 | Outpatient (AMB) | payer MEDICARE, SELFPAY ==
--- OUTSIDE RECORDS SUMMARY | 2025-08-22 10:29 | XMS_ITS | Clinical Summary ---
Author Organization [address] [place] [address] [place] [phone] Phone Care Team Providers Care Molder Name Role Phone Mar Lund Primary Care Provider [phone] Allergies Active Allergy Reactions Criticality Noted Date [...] prior to dental appt. 2 capsule 2 06/03/2025 Active Active Problems Problem Noted Date Diagnosed [...] 10/27/2024 COVID-19 Vaccine (7 - Pfizer risk 2023- season) 2025 07/14/2024, 11/07/2022, 04/09/2022, Additional history exists Influenza Vaccine (#1) 2025 4, 09/10/2023, 08/10/2021, Additional history exists Osteoporosis Screening [...] Procedure Name Priority Date/Time Associated Diagnosis Comments [facility] DEXA AXIAL SKELETON Routine 09/07/2018 11:24 AM EST Asymptomatic menopausal state from Last 3 Months or Most Recently Relevant to Health Maintenance Results * [facility] DEXA AXIAL SKELETON (09/07/2018 11:24 AM EST) Anatomical Region Laterality Modality Mammography 09/07/2018 9:11 AM EST Narrative 09/07/2018 11:24 AM EST [facility] Diagnostic Imaging Department [address] [place] [address] Patient: AIDEE NOLEN D.O.B./Age/Sex: 1940 - 78 - F Unit#: [id number] Location/Status: [facility]/REG CLI Mnemonic/Ordering Site: [facility] Ordering Physician: LATRICIA [...] probability of hip fracture of 2.7%. Code 78859 Dictating Physician: THA KENT MD Electronically Signed by: THA KENT MD Dic Date/Time: 09/07/18 1123 Sign date/Time: 09/07/18 1124 Procedure Note Tha Kent MD - 10/15/2022 [facility] Diagnostic Imaging Department [address] [place] [id number] Patient: AIDEE NOLEN /Age/Sex: 1940 - 78 - F Unit#: [id number] Location/Status: SPDIMAM/REG CLI Mnemonic/Ordering Site: [facility] Ordering Physician: LATRICIA ALARCON MD [facility] Dexa Axial Skeleton - 09/07/18 - 1021 [...] probability of hip fracture of 2.7%. 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
--- OUTSIDE RECORDS SUMMARY | 2025-08-22 10:29 | XMS_ITS | Clinical Summary ---
Author Organization [facility] Address [address] [place], [place] [id number] Care Team Providers Care Biomedical Analytical Scientist Name Role Phone Félix Alarcon MD Primary Care Provider [phone] Allergies Active Allergy Reactions Criticality Noted Date [...] age to complete this topic Care Teams Biomedical Analytical Scientist Relationship Specialty Start Date End Date Félix Alarcon MD [address] [place] [address] PCP - General Internal Medicine 06/10/17
== END 2025-08-22 09:33 | disposition home or self-care (01) ==
LOC: HO.HMGAL 09:25
PROVIDERS: PCP Physician Assistant Medical; Visit Provider Registered Nurse Emergency
DX: J30.89 Other allergic rhinitis (principal)
CPT/HCPCS: 95117; 95165

== ENCOUNTER 2025-10-03 09:34 | Outpatient (AMB) | payer MEDICARE, SELFPAY | END 2025-10-03 09:34 | disposition home or self-care (01) | LOC: HO.HMGAL 09:34 | PROVIDERS: PCP Physician Assistant Medical; Visit Provider Registered Nurse Emergency | DX: J30.89 Other allergic rhinitis (principal) | CPT/HCPCS: 95117; 95165 ==